=== PATIENT | female | born 1995 | race Caucasian/White ===

== ENCOUNTER 2020-01-20 14:03 | Outpatient (CLI) | payer BC, OTHER ==
--- NOTE | 2020-01-20 14:59 | US ---
EXAMINATION TYPE: US OB limited DATE OF EXAM: 01/20/2020 COMPARISON: NONE CLINICAL HISTORY: JAYDA. Fluid only EXAM PERFORMED: Transabdominal (TA) GESTATIONAL AGE / DATING Physician Established: (34 weeks/4 days) EDC: 02/27/2020 No growth performed on today?s study per ordering physician SURVEY JAYDA: 19.3 cm upper limits of normal Ultrasound evidence of premature rupture of membranes? no HEART RATE: 134 bpm RHYTHM: Normal IMPRESSION: Upper limits of normal amniotic fluid index measuring 19.3 cm. Heart rate of 134 bpm.
[2020-01-20 15:22] LABS: Basophils % (A) 0 %; Eosinophils # (A) 0.1 k/uL (0-0.7); Eosinophils % (A) 1 %; HCT 35.7 % (34.0-46.0); HGB 11.8 gm/dL (11.4-16.0); Lymphocytes % (A) 8 %; MCH 27.9 pg (25.0-35.0); MCHC 33.2 g/dL (31.0-37.0); MCV 84.1 fL (80.0-100.0); Mean Platelet Volume 8.3; Monocytes # (A) 0.6 k/uL (0-1.0); Monocytes % (A) 5 %; Neutrophils # (A) 10.6 k/uL (1.3-7.7); Neutrophils % (A) 85 %; Platelet Count 241 k/uL (150-450); RBC 4.25 m/uL (3.80-5.40); RDW 14.6 % (11.5-15.5); WBC 12.4 k/uL (3.8-10.6)
[2020-01-20 15:30] LABS: ALT 21 U/L (4-34); AST 21 U/L (14-36); African American GFR (CKD) >90 (>60 ml/min/1.73 sqM); Blood Urea Nitrogen 14 mg/dL (7-17); LDH 389 U/L (313-618); Non-African American GFR(CKD) >90 (>60 ml/min/1.73 sqM); Uric Acid 5.4 mg/dL (3.7-7.4)
[2020-01-20 16:11] LABS: Protein/Creatinine Ratio,Urine 0.107
[2020-01-20 16:12] LABS: Creatinine,Urine Random 120.2 mg/dL
[2020-01-20 16:17] LABS: Appearance,Urine Clear (Clear); Bilirubin,Urine Negative (Negative); Blood,Urine Negative (Negative); Color,Urine Yellow; Glucose,Urine (UA) Negative (Negative); Ketones,Urine Negative (Negative); Leukocyte Esterase,Urine Negative (Negative); Nitrite,Urine Negative (Negative); Protein,Urine Trace (Negative); Urobilinogen,Urine <2.0 mg/dL (<2.0)
[2020-01-20 16:42] VITALS: BP 149/87; PULSE 115; RESP 16; TEMP 98.8
--- NOTE | 2020-02-01 15:29 | P.MSEPDOC ---
Presenting Problems - Arrival Data Date of Arrival on Unit: 01/20/20 Time of Arrival on Unit: 14:03 Mode of Transport: Portable - Complaint OB-Reason for Admission/Chief Complaint: PIH Medical History - Information : 4 Para: 1 Term: 1 : 0 Abortions: Spontaneous or Elective: 0 Number of Living Children: 1 - Gestational Age Gestational Age by BERENICE (wks/days): 34 Weeks and 4 Days Review of Systems - Review of Systems Constitutional: No problems Breast: No problems ENT: No problems Cardiovascular: No problems Respiratory: No problems Gastrointestinal: No problems Genitourinary: No problems Musculoskeletal: No problems Neurological: No problems Skin: No problems Vital Signs - Temperature Temperature: 98.8 F Temperature Source: Temporal Artery Scan - Pulse Right Sitting Pulse Rate: 115 Pulse Assessment Method: Automatic Cuff - Respirations Respiratory Rate: 16 Oxygen Delivery Method: Room Air O2 Sat by Pulse Oximetry: 97 - Blood Pressure Right Arm Blood Pressure: 149/87 Blood Pressure Mean: 107 Blood Pressure Source: Automatic Cuff Physician Notification (Pre) - Physician Notified Physician Notified Date: 01/20/20 Physician Notified Time: 16:23 New Order Received: Yes (d/c home) - Notification Comment Comment: pt came with orders for pih Disposition - Disposition OB Disposition: Discharge to home Discharge Date: 01/20/20 Discharge Time: 16:30 I agree with the RN Medical Screening Exam: Yes Risk & Benefit of care provided described in d/c instruction: Yes Diagnosis: GESTATIONAL HTN W/O SIGNIFICANT PROTEINURIA, THIRD TRIMESTER
== END 2020-01-20 16:30 | disposition home or self-care (01) ==
LOC: FBPOP 14:03
PROVIDERS: ATTEND Obstetrics & Gynecology
DX: O13.3 Gestational [pregnancy-induced] hypertension without significant proteinuria, third trimester (principal); Z3A.34 34 weeks gestation of pregnancy
CPT/HCPCS: 59025; 76815; 81003; 82565; 82570; 83615; 84156; 84450; 84460; 84520; 84550; 85025

== ENCOUNTER 2020-01-27 14:29 | Observation (INO) | payer BC, OTHER ==
[2020-01-27 15:35] LABS: Basophils % (A) 0 %; Eosinophils % (A) 0 %; HCT 37.2 % (34.0-46.0); Lymphocytes # (A) 1.2 k/uL (1.0-4.8); Lymphocytes % (A) 10 %; MCH 27.5 pg (25.0-35.0); MCHC 32.3 g/dL (31.0-37.0); MCV 85.3 fL (80.0-100.0); Mean Platelet Volume 8.4; Monocytes # (A) 0.6 k/uL (0-1.0); Monocytes % (A) 5 %; Neutrophils % (A) 83 %; Platelet Count 230 k/uL (150-450); RBC 4.37 m/uL (3.80-5.40); RDW 14.6 % (11.5-15.5)
[2020-01-27 15:40] LABS: Uric Acid 5.2 mg/dL (3.7-7.4)
--- NOTE | 2020-01-27 15:49 | US ---
EXAMINATION TYPE: US OB >= 14 wk fetus DATE OF EXAM: 01/27/2020 COMPARISON: US one week ago. CLINICAL HISTORY: Complete US, Gest HTNGestational HTN TECHNIQUE: Transabdominal (TA) GESTATIONAL AGE / DATING Physician Established: (35 weeks/4 days) EDC: 02/27/2020 Dates by LMP: Unknown Dates by First Scan: This is 1st scan Dates by Current Scan: (38 weeks/2 days) EDC: 02/08/2020 SURVEY IUP: Single PLACENTA: Anterior/Posterior PREVIA: No Previa JAYDA: 21.6 cm Upper limits of normal CERVICAL LENGTH (transabdominal: norm > 3.0cm): 4.0 cm BIOMETRY PRESENTATION: Vertex BPD: 9.2 cm 37 weeks / 4 days HC: 34.1 cm 39 weeks / 3 days AC: 34.3 cm 38 weeks / 2 days FL: 7.3 cm 37 weeks / 4 days ESTIMATED WEIGHT IN GRAMS: 3392 grams ESTIMATED WEIGHT IN LBS/OZ: 7 lbs. 8 oz. WEIGHT PERCENTAGE BASED ON ESTABLISHED DATES: 97% HC/AC: 1.00 Normal FL/AC: 21% Normal HEART RATE: 135 bpm RHYTHM: Normal Viable single IUP measuring 38 weeks 2 days with a heart rate of 135bpm and an estimated delivery ayesha e of 02/08/2020 Single live intrauterine gestation redemonstrated. No cervical thinning. Normal cephalad presentatio n. No ultrasound evidence for previa. Amniotic fluid index calculated up limits of normal to mildly e levated. biometry measurements are within normal limits except for weight which is slight ly greater than expected for gestational age. IMPRESSION: As above.
[2020-01-27 16:07] LABS: Appearance,Urine Clear (Clear); Bilirubin,Urine Negative (Negative); Blood,Urine Negative (Negative); Color,Urine Yellow; Glucose,Urine (UA) Negative (Negative); Ketones,Urine Negative (Negative); Leukocyte Esterase,Urine Negative (Negative); Nitrite,Urine Negative (Negative); PH, Urine 6.5 (5.0-8.0); Protein,Urine Trace (Negative); Specific Gravity,Urine 1.015 (1.001-1.035); Urobilinogen,Urine <2.0 mg/dL (<2.0)
[2020-01-27] MEDS ORDERED: ACETAMINOPHEN TAB 325 MG TAB PO PRN (16:23)
[2020-01-27 16:26] LABS: Creatinine,Urine Random 98.1 mg/dL; Protein/Creatinine Ratio,Urine 0.143
[2020-01-27] MEDS: LABETALOL 200 MG TAB PO SCH ×2 (16:49→22:38)
[2020-01-28] MEDS: LABETALOL 200 MG TAB PO SCH (07:58)
--- NOTE | 2020-01-28 15:00 | P.HPOB ---
History of Present Illness H&P Date: 01/28/20 Chief Complaint: Gestational hypertension This is a 24-year-old female 4 para 1 with an estimated date of confinement of 02/27/2020, estimated gestational age of 35-4/7 weeks, who presented to the office on 01/27/2020 for her routine visit. At that time her blood pressure was elevated at 160/90. She denied any symptoms of headaches, blurry vision, or epigastric pain. She was sent to the hospital for evaluation with labs and ultrasound along with serial blood pressure checks. Her labs and ultrasound were all normal. Her blood pressures did fluctuate in the 140s over 70s up to 160s over 90s. She is admitted for a 24-hour urine collection and will be started on labetalol for her blood pressure since this does not appear to be preeclampsia. She has been seen by maternal- medicine and has been following with them however her last appointment was canceled due to car trouble. Her appointment is rescheduled for next Saturday. Obstetrical history: . History of 1 vaginal delivery at 38-6/7 weeks. was Located by gestational diabetes and mild preeclampsia. She also has a history of 2 miscarriages. Gynecologic history: No history of sexual transmitted diseases. Social history: She is . She is not working outside of the home. Review of Systems Constitutional: Denies chills, Denies fever Eyes: denies blurred vision, denies pain Ears, nose, mouth and throat: Denies headache, Denies sore throat Cardiovascular: Denies chest pain, Denies shortness of breath Respiratory: Denies cough Gastrointestinal: Denies abdominal pain Genitourinary: Reports , Denies pelvic pain Musculoskeletal: Denies myalgias Integumentary: Denies pruritus, Denies rash Neurological: Denies numbness, Denies weakness Psychiatric: Denies anxiety, Denies depression Past Medical History Past Medical History: No Reported History Additional Past Medical History / Comment(s): Gestational DM with 1st History of Any Multi-Drug Resistant Organisms: None Reported Past Surgical History: Tonsillectomy Past Anesthesia/Blood Transfusion Reactions: No Reported Reaction Past Psychological History: No Psychological Hx Reported Smoking Status: Never smoker Past Alcohol Use History: None Reported Past Drug Use History: None Reported - Past Family History Father Family Medical History: Diabetes Mellitus, Hypertension Mother Family Medical History: Hypertension, Thyroid Disorder Additional Family Medical History / Comment(s): depression Medications and Allergies Home Medications Medication Instructions Recorded Confirmed Type Pnv,Calcium 72/Iron/Folic Acid 1 each PO DAILY 07/07/15 01/27/20 History [ Plus Tablet] Labetalol [Trandate] 200 mg PO BID #28 tab 01/28/20 Rx Allergies Allergy/AdvReac Type Severity Reaction Status Date / Time No Known Allergies Allergy Verified 01/27/20 14:35 Exam Osteopathic Statement: *. No significant issues noted on an osteopathic structural exam other than those noted in the History and Physical/Consult. Vital Signs Temp Pulse Resp BP Pulse Ox 01/28/20 07:58 97.4 F L 85 14 141/79 98 01/28/20 04:00 97.9 F 16 155/59 98 01/28/20 00:00 97.8 F 77 16 130/60 96 01/27/20 20:00 97.8 F 85 16 131/68 97 01/27/20 18:50 100 167/75 01/27/20 18:24 168/86 01/27/20 16:51 98.9 F 104 H 16 139/86 01/27/20 16:48 104 H 139/86 Intake and Output 01/27/20 01/28/20 01/28/20 22:59 06:59 14:59 Other: # Voids 1 Weight 139.706 kg HEENT: Within normal limits Heart: Regular rate and rhythm Lungs: Clear to auscultation bilaterally Abdomen: with fundal height of 37 cm heart tones: Reactive Extremities: Negative Homans, no edema Results Result Diagrams: 01/27/20 15:02 01/27/20 15:02 Abnormal Lab Results - Last 24 Hours (Table) 01/27/20 01/27/20 Range/Units 14:38 15:02 WBC 12.0 H (3.8-10.6) k/uL Neutrophils # 10.0 H (1.3-7.7) k/uL Urine Protein Trace H (Negative) Assessment and Plan (1) Gestational hypertension Current Visit: Yes Status: Acute Code(s): O13.9 - GESTATIONAL HTN W/O SIGNIFICANT PROTEINURIA, UNSP TRIMESTER SNOMED Code(s): 947126456 Plan: The patient for observation of blood pressures, antihypertensives, and 24 hour urine collection for protein. If blood pressures are controlled on labetalol and 24 hour urine collection is normal, will be discharged on labetalol 200 mg twice a day. She will follow up with maternal- medicine on Saturday and see me in the office on Saturday. The plan will still be for delivery between 37 and 38 weeks due to gestational hypertension.
[2020-01-28 16:03] VITALS: BP 145/70; PULSE 81; RESP 16; TEMP 97.3
[2020-01-28 16:37] LABS: Total Protein 24 Hour,Urine 168 mg/24hr (42.0-225.0); Total Volume 24 Hour,Urine 1525 mls (800-1800)
--- NOTE | 2020-01-28 19:50 | P.DS ---
Providers Date of admission: 01/27/20 16:18 Expected date of discharge: 01/28/20 Attending physician: Eden Rocha Primary care physician: Stated None - Discharge Diagnosis(es) (1) Gestational hypertension Status: Acute Hospital Course: This is a 24-year-old female 4 para 1 at 35-4/7 weeks who presented for workup for gestational hypertension. Her preeclampsia workup was negative however she did have several isolated elevated blood pressures over 160 systolic and 90s diastolic. She was therefore admitted for observation of blood pressures and 24-hour urine collection. She was started on labetalol 200 mg twice a day. She denies any symptoms of headaches or blurry vision. NSTs were reactive and category 1. Her urine protein was 168 mg in 24 hours. She is therefore discharged home on labetalol 200 mg twice a day. She is instructed to follow-up with maternal medicine on Saturday and with me on Saturday. She is advised to return to the hospital if she has any decreased movement, regular contractions, headaches, blurry vision, epigastric pain, or any concerning symptoms. Patient Condition at Discharge: Stable Plan - Discharge Summary New Discharge Prescriptions: New RX: Labetalol [Trandate] 200 mg PO BID #28 tab No Action RX: Pnv,Calcium 72/Iron/Folic Acid [ Plus Tablet] 1 each PO DAILY Discharge Medication List RX: Pnv,Calcium 72/Iron/Folic Acid [ Plus Tablet] 1 each PO DAILY 07/07/15 [History] RX: Labetalol [Trandate] 200 mg PO BID #28 tab 01/28/20 [Rx] Follow up Appointment(s)/Referral(s): Eden Rocha DO [Doctor of Osteopathic Medicine] - 1 Week Patient Instructions/Handouts: Preeclampsia During (GEN) Activity/Diet/Wound Care/Special Instructions: Activity as tolerated. Diet as tolerated. Discharge Disposition: HOME SELF-CARE
== END 2020-01-28 17:06 | disposition home or self-care (01) ==
LOC: FBPOP 14:29 → UNDOADMIN 16:18 → 4FBP 16:18 → INTOOBSV 16:18
PROVIDERS: ADMIT Obstetrics & Gynecology; ATTEND Obstetrics & Gynecology
DX: O13.3 Gestational [pregnancy-induced] hypertension without significant proteinuria, third trimester (principal); Z3A.35 35 weeks gestation of pregnancy; Z83.3 Family history of diabetes mellitus; Z82.49 Family history of ischemic heart disease and other diseases of the circulatory system; Z81.8 Family history of other mental and behavioral disorders
CPT/HCPCS: 59025; 82570; 84156 ×2; 81050; 83615; 84450; 84460; 84520; 84550; 85025; 81003; 76805; G0378 ×2

== ENCOUNTER 2020-02-07 16:53 | Inpatient (IN) | payer BC, OTHER ==
--- NOTE | 2020-02-07 10:19 | P.HPOB ---
History of Present Illness H&P Date: 02/07/20 Chief Complaint: Gestational hypertension This is a 24 y.o. female, 4, para 1, with an estimated date of confinement of 02/27/2020, estimated gestational age of 37-1/7 weeks who presents for cervidil cervical ripening, followed by oxytocin induction of labor due to gestational hypertension. She was started on Labetalol 200 mg BID last week due to elevated BPs despite normal labs and urine protein. She has been followed by [facility] and has been doing twice weekly NSTs. Her last US at [facility] on 02/01/2020 showed an estimated weight of 7#3oz(76%) and BPP of 8/8. She denies any headaches, blurred vision or epigastric pain. She does have irregular contractions. labs: GC/Chlaydia/Trich-neg Random glucose-85 Hepatitis B surface antigen-neg RPR-NR Rubella-immune Blood type-A+ Antibody screen-neg Hemoglobin-12.8 1 hr. GTT-157, 3 hr. GTT-normal GBS-positive OB Hx: . Hx of 1 vaginal delivery at 38 weeks, complicated by GDM and mild pre-eclampsia. Hx 2 miscarriages. [employer] Hx: No hx STDs Social Hx: . Unemployed. Review of Systems Constitutional: Denies chills, Denies fever Eyes: denies blurred vision, denies pain Ears, nose, mouth and throat: Denies headache, Denies sore throat Cardiovascular: Denies chest pain, Denies shortness of breath Gastrointestinal: Reports abdominal pain (occ ctxs.), Denies diarrhea, Denies nausea, Denies vomiting Genitourinary: Reports pelvic pain, Reports Musculoskeletal: Reports low back pain Integumentary: Denies pruritus, Denies rash Neurological: Denies numbness, Denies weakness Psychiatric: Denies anxiety, Denies depression Past Medical History Past Medical History: Hypertension (Gestational) Additional Past Medical History / Comment(s): Gestational DM with 1st History of Any Multi-Drug Resistant Organisms: None Reported Past Surgical History: Tonsillectomy Past Anesthesia/Blood Transfusion Reactions: No Reported Reaction Past Psychological History: No Psychological Hx Reported Smoking Status: Never smoker Past Alcohol Use History: None Reported Past Drug Use History: None Reported - Past Family History Father Family Medical History: Diabetes Mellitus, Hypertension Mother Family Medical History: Hypertension, Thyroid Disorder Additional Family Medical History / Comment(s): depression Medications and Allergies Home Medications Medication Instructions Recorded Confirmed Type Pnv,Calcium 72/Iron/Folic Acid 1 each PO DAILY 07/07/15 01/27/20 History [ Plus Tablet] Labetalol [Trandate] 200 mg PO BID #28 tab 01/28/20 Rx Allergies Allergy/AdvReac Type Severity Reaction Status Date / Time No Known Allergies Allergy Verified 01/27/20 14:35 Exam Osteopathic Statement: *. No significant issues noted on an osteopathic structural exam other than those noted in the History and Physical/Consult. HEENT: within normal limits Heart: regular rate and rhythm Lungs: clear to auscultation bilaterally Abdomen: , non-tender Cervix: FT/60%/-2 heart tones: reactive Contractions: irreg. Extremities: neg. Meghan's. Assessment and Plan (1) 37 weeks gestation of Status: Acute Code(s): Z3A.37 - 37 WEEKS GESTATION OF SNOMED Code(s): 67879421 (2) Gestational hypertension Status: Acute Code(s): O13.9 - GESTATIONAL HTN W/O SIGNIFICANT PROTEINURIA, UNSP TRIMESTER SNOMED Code(s): 653195519 (3) Group B Streptococcus carrier, +RV culture, currently Status: Acute Code(s): O99.820 - STREPTOCOCCUS B CARRIER STATE COMPLICATING SNOMED Code(s): 3051190308307 Plan: Proceed with cervidil cervical ripening followed by oxytocin induction of labor. Will repeat labs on admission. Antibiotic prophylaxis for group B streptococcus.
[2020-02-07] MEDS ORDERED: ZOLPIDEM 5 MG TAB PO PRN (16:58)
[2020-02-07] MEDS ORDERED: AMPICILLIN 2,000 MG in SODIUM CHLORIDE 0.9% 100 ML IVPB STA (16:58)
[2020-02-07] MEDS ORDERED: DINOPROSTONE 10 MG INSERT.ER VAGINAL ONE (16:58)
[2020-02-07] MEDS: LACTATED RINGERS 1,000 ML IV SCH (17:16)
[2020-02-07 17:49] LABS: ALT 19 U/L (4-34); AST 23 U/L (14-36); African American GFR (CKD) >90 (>60 ml/min/1.73 sqM); Blood Urea Nitrogen 13 mg/dL (7-17); LDH 464 U/L (313-618); Non-African American GFR(CKD) >90 (>60 ml/min/1.73 sqM); Uric Acid 5.2 mg/dL (3.7-7.4)
[2020-02-07 17:50] LABS: Basophils % (A) 0 %; Eosinophils # (A) 0.1 k/uL (0-0.7); Eosinophils % (A) 1 %; HCT 34.9 % (34.0-46.0); HGB 11.6 gm/dL (11.4-16.0); Lymphocytes # (A) 1.1 k/uL (1.0-4.8); Lymphocytes % (A) 10 %; MCH 27.9 pg (25.0-35.0); MCHC 33.2 g/dL (31.0-37.0); MCV 84.1 fL (80.0-100.0); Mean Platelet Volume 8.8; Monocytes # (A) 0.5 k/uL (0-1.0); Monocytes % (A) 4 %; Neutrophils # (A) 9.3 k/uL (1.3-7.7); Neutrophils % (A) 84 %; Platelet Count 274 k/uL (150-450); RBC 4.15 m/uL (3.80-5.40); RDW 14.9 % (11.5-15.5); WBC 11.1 k/uL (3.8-10.6)
[2020-02-07] MEDS: LABETALOL 200 MG TAB PO SCH (21:17)
[2020-02-07] MEDS: AMPICILLIN 1,000 MG in SODIUM CHLORIDE 0.9% 50 ML IVPB SCH ×2 (21:17)
[2020-02-07 21:54] LABS: Appearance,Urine Clear (Clear); Bilirubin,Urine Negative (Negative); Blood,Urine Negative (Negative); Color,Urine Yellow; Glucose,Urine (UA) Negative (Negative); Ketones,Urine Negative (Negative); Leukocyte Esterase,Urine Negative (Negative); Nitrite,Urine Negative (Negative); PH, Urine 6.5 (5.0-8.0); Protein,Urine Trace (Negative); Specific Gravity,Urine 1.024 (1.001-1.035); Urobilinogen,Urine <2.0 mg/dL (<2.0)
[2020-02-07 22:05] LABS: Protein/Creatinine Ratio,Urine 0.151
[2020-02-07] MEDS: BUTORPHANOL 1 MG/ML 1 ML VIAL IV PRN (22:30)
[2020-02-08] MEDS: AMPICILLIN 1,000 MG in SODIUM CHLORIDE 0.9% 50 ML IVPB SCH ×4 (01:18→15:40)
[2020-02-08] MEDS: BUTORPHANOL 1 MG/ML 1 ML VIAL IV PRN ×2 (01:21→07:14)
[2020-02-08] MEDS: LACTATED RINGERS 1,000 ML IV SCH (05:01)
[2020-02-08] MEDS ORDERED: LACTATED RINGERS 1,000 ML IV SCH (05:13)
[2020-02-08] MEDS ORDERED: LIDOCAINE 1% (10MG/ML) FOR IV START INTRADERMA PRN (05:13)
[2020-02-08] MEDS ORDERED: LIDOCAINE 0.5% (PF) 5 MG/ML (50 ML SDV) SQ PRN (05:13)
[2020-02-08] MEDS ORDERED: TERBUTALINE 1 MG/ML VIAL SQ PRN (05:13)
[2020-02-08] MEDS ORDERED: CARBOPROST TROMETHAMINE 250 MCG/ML 1 ML AMP IM PRN (05:13)
[2020-02-08] MEDS ORDERED: OXYTOCIN 10 UNIT/ML 1 ML VIAL IM PRN (05:13)
[2020-02-08] MEDS ORDERED: METHYLERGONOVINE 0.2 MG/ML 1 ML AMP IM PRN (05:13)
[2020-02-08] MEDS ORDERED: OXYTOCIN 30 UNITS/500 ML NS 30 UNIT in SALINE 1 500ML.BAG IV SCH (05:13)
[2020-02-08] MEDS: LABETALOL 200 MG TAB PO SCH ×2 (08:48→21:20)
[2020-02-08] MEDS ORDERED: ROPIVACAINE 100 MG, fentaNYL (PF) 200 MCG in SODIUM CHLORIDE 0.9% 76 ML EPIDURAL ONE (10:48)
[2020-02-08] MEDS ORDERED: HYDROCORTISONE 2.5% RECTAL CREAM 30 GM TUBE RECTAL PRN (12:23)
[2020-02-08] MEDS ORDERED: OXYTOCIN 20 UNITS/1000 ML NS 1,000 ML IV SCH (12:23)
[2020-02-08] MEDS ORDERED: ZOLPIDEM 5 MG TAB PO PRN (12:23)
[2020-02-08] MEDS ORDERED: diphenhydrAMINE 25 MG CAP PO PRN (12:23)
[2020-02-08] MEDS ORDERED: LANOLIN CREAM 5 GM TUBE TOPICAL PRN (12:23)
[2020-02-08] MEDS ORDERED: SIMETHICONE 80 MG CHEWABLE PO PRN (12:23)
[2020-02-08] MEDS ORDERED: WITCH HAZEL 1 EACH MED..PAD TOPICAL PRN (12:23)
[2020-02-08] MEDS ORDERED: diphenhydrAMINE 50 MG CAP PO PRN (12:23)
[2020-02-08] MEDS ORDERED: diphenhydrAMINE 50 MG/ML 1 ML VIAL IVP PRN ×2 (12:23)
[2020-02-08] MEDS ORDERED: ACETAMINOPHEN TAB 325 MG TAB PO PRN (12:23)
[2020-02-08] MEDS ORDERED: IBUPROFEN 600 MG TAB PO PRN (12:23)
[2020-02-08] MEDS ORDERED: BENZOCAINE/MENTHOL SPRAY 1 GM/SPRAY AEROSOL TOPICAL PRN (12:23)
--- NOTE | 2020-02-08 14:21 | P.PROBDLV ---
Vaginal Delivery Note - . Vaginal Delivery Note: The patient progressed to complete dilation after Cervidil cervical ripening followed by oxytocin induction of labor. She underwent artificial rupture membranes with clear fluid noted and was dilated to 1-1/2 at that time. She did receive epidural anesthesia after several doses of Stadol. Once reaching complete dilation, she began pushing. Infant's head came to a crown. She began having decelerations down to 60s to 70s after some of her contractions. At this point the perineum was anesthetized with 1% lidocaine and a midline episiotomy was cut. With one further push, the infant's head delivered across the perineum followed by the infant's body fairly rapidly. Nuchal cord times one was reduced around the body with delivery. was placed on mother's abdomen and nose and mouth were bulb suctioned. Cord was clamped and cut and infant was taken to warmer for evaluation. A viable male infant is noted with scores of 9 at 1 minute and 9 at 5 minutes and infant weight of 8 lbs. 4 oz. Placenta delivered shortly thereafter, intact, with a three-vessel cord. Uterus contracted initially fairly well after oxytocin was given and uterine massage was carried out. Her bladder was also drained with a catheter. Inspection of the perineum revealed a midline episiotomy that did extend upwards towards the cervix on both sides of the vagina. This area was anesthetized with 1% lidocaine. The apex of the cut was sutured with 3-0 Vicryl suture in a running locked fashion on either side of the vagina. The remainder was sutured with 3-0 and 2-0 Vicryl suture in the usual multilayer fashion. After the repair she was noted to still be oozing. A gloved hand was placed within the intrauterine cavity and blood clot was removed. Uterus did firm up after this. Estimated blood loss is approximately 300 mL's. Mother and infant are in stable c ondition.
[2020-02-08] MEDS: SENNOSIDES-DOCUSATE SODIUM 1 EACH TAB PO SCH (21:19)
[2020-02-09 07:18] LABS: Basophils % (A) 0 %; Eosinophils # (A) 0.1 k/uL (0-0.7); Eosinophils % (A) 1 %; HCT 31.2 % (34.0-46.0); HGB 10.2 gm/dL (11.4-16.0); Lymphocytes # (A) 2.1 k/uL (1.0-4.8); Lymphocytes % (A) 15 %; MCH 27.8 pg (25.0-35.0); MCHC 32.7 g/dL (31.0-37.0); MCV 85.3 fL (80.0-100.0); Mean Platelet Volume 8.8; Monocytes # (A) 0.8 k/uL (0-1.0); Monocytes % (A) 5 %; Neutrophils # (A) 10.5 k/uL (1.3-7.7); Neutrophils % (A) 75 %; Platelet Count 252 k/uL (150-450); RBC 3.65 m/uL (3.80-5.40); RDW 14.9 % (11.5-15.5)
[2020-02-09] MEDS: SENNOSIDES-DOCUSATE SODIUM 1 EACH TAB PO SCH (08:23)
[2020-02-09] MEDS: LABETALOL 200 MG TAB PO SCH (08:24)
--- NOTE | 2020-02-09 08:59 | P.DS ---
Providers Date of admission: 02/07/20 16:53 Expected date of discharge: 02/09/20 Attending physician: Eden Rocha Primary care physician: Stated None - Discharge Diagnosis(es) (1) 37 weeks gestation of Current Visit: No Status: Acute (2) Gestational hypertension Current Visit: No Status: Acute (3) Group B Streptococcus carrier, +RV culture, currently Current Visit: No Status: Acute Hospital Course: This is a 24-year-old female 4 para 1 at 37 and one sevenths weeks who presented for induction of labor secondary to gestational hypertension. Her blood pressures have been well controlled on labetalol 200 mg twice a day. Her labs were negative for preeclampsia. She underwent Cervidil cervical ripening followed by oxytocin induction of labor and delivered vaginally a viable male on 02/08/2020 with scores of 9 at 1 minute and 9 at 5 minutes and weight of 8 lbs. 4 oz. Her course has been uncomplicated. Lochia is decreasing. She is working on pumping her breast milk. Her baby is in level I nursery on oxygen. She would like to go home today however due to care for her other child. Vital signs are stable with normal blood pressures. Abdomen is soft with fundus firm and nontender. Extremities show negative Homans. Impression is status post vaginal delivery day #1. Plan is to discharge home today. She is advised to continue taking her labetalol 200 mg twice a day at home. She will be given a prescription for ibuprofen and a breast pump. She is advised to follow up in the office in approximately 1-2 weeks for a blood pressure check. Routine instructions are given. She is advised to call the office if she has any further questions or concerns prior to her appointment time. Procedures: Cervidil cervical ripening Oxytocin induction of labor Spontaneous vaginal delivery of a viable male on 02/08/2020 Patient Condition at Discharge: Stable Plan - Discharge Summary New Discharge Prescriptions: New Ibuprofen [Motrin] 600 mg PO Q6HR PRN #60 tab PRN Reason: Mild Pain Or Fever >= 100.5 Continue Pnv,Calcium 72/Iron/Folic Acid [ Plus Tablet] 1 each PO DAILY Labetalol [Trandate] 200 mg PO BID #28 tab Discharge Medication List Pnv,Calcium 72/Iron/Folic Acid [ Plus Tablet] 1 each PO DAILY 07/07/15 [History] Ibuprofen [Motrin] 600 mg PO Q6HR PRN #60 tab 02/09/20 [Rx] Labetalol [Trandate] 200 mg PO BID #28 tab 02/09/20 [Rx] Follow up Appointment(s)/Referral(s): Eden Rocha DO [Doctor of Osteopathic Medicine] - 2 Weeks Activity/Diet/Wound Care/Special Instructions: Instructions 1. Do not begin any exercise program for 3 weeks. 2. Do not resume sexual relations for 3 weeks or longer if uncomfortable. 3. You may take tub baths or showers at any time. 4. You may use tampons if desired after 3 weeks. 5. Keep the area of episiotomy (stitches) clean and dry. 6. If you are not nursing, wear a good fitting, supportive bra during the day and limit fluid intake for at least 1 week to prevent breast engorgement. 7. Call the office, [phone], within the next week to make appointment for your 6 week checkup if it has not already been made. 8. Report any of the following occurrences to the doctor promptly: a. Heavy, excessive bleeding b. Chills, fever c. Burning or frequency of urination d. Pain or redness and breasts if nursing e. Increasing pain or swelling in episiotomy (stitches). In addition to the above instructions, the following additional should be followed: 1. No heavy lifting or straining (exercising) until after 6 week checkup. 2. Keep abdominal incision clean and dry: You may wear a dressing if more comfortable. 3. Make office appointment for 10 days after going home or as instructed by her doctor. Discharge Disposition: HOME SELF-CARE
[2020-02-09 10:39] VITALS: RESP 18
[2020-02-09 16:05] VITALS: BP 143/65; PULSE 73; TEMP 97.6
== END 2020-02-09 18:53 | disposition home or self-care (01) | DRG 807 ==
LOC: 4FBP 16:53
PROVIDERS: ADMIT Obstetrics & Gynecology; ATTEND Obstetrics & Gynecology
PROC: 00HU33Z Insertion of Infusion Device into Spinal Canal, Percutaneous Approach (ICD-10-PCS; principal; 2020-02-08)
PROC: 3E0R3BZ Introduction of Anesthetic Agent into Spinal Canal, Percutaneous Approach (ICD-10-PCS; principal; 2020-02-08)
PROC: 10E0XZZ Delivery of Products of Conception, External Approach (ICD-10-PCS; principal; 2020-02-08)
DX: O13.4 Gestational [pregnancy-induced] hypertension without significant proteinuria, complicating childbirth (principal); Z37.0 Single live birth; O69.81X0 Labor and delivery complicated by cord around neck, without compression, not applicable or unspecified; O76 Abnormality in fetal heart rate and rhythm complicating labor and delivery; O99.820 Streptococcus B carrier state complicating pregnancy; Z3A.37 37 weeks gestation of pregnancy; Z81.8 Family history of other mental and behavioral disorders; Z82.49 Family history of ischemic heart disease and other diseases of the circulatory system; Z83.3 Family history of diabetes mellitus; Z86.32 Personal history of gestational diabetes
CPT/HCPCS: 81003; 82565; 82570; 83615; 84156; 84450; 84460; 84520; 84550; 85025; 86850; 86900; 86901; 88307

== ENCOUNTER 2021-08-09 11:43 | Emergency (ER) | payer BC, OTHER ==
[2021-08-09 12:02] VITALS: RESP 18; TEMP 98.2
--- NOTE | 2021-08-09 13:01 | US ---
EXAMINATION TYPE: US venous doppler duplex LE RT DATE OF EXAM: 08/09/2021 12:39 PM COMPARISON: NONE CLINICAL HISTORY: pain. bruising right lower leg SIDE PERFORMED: right TECHNIQUE: The lower extremity deep venous system is examined utilizing real time linear array sonog jacob with graded compression, doppler sonography and color-flow sonography. VESSELS IMAGED: Common Femoral Vein Deep Femoral Vein Greater Saphenous Vein * Femoral Vein Popliteal Vein Small Saphenous Vein * Proximal Calf Veins (* superficial vessels) Right Leg: no evidence of DVT. scanned within area of bruising (right lateral mid calf), no evidence of fluid collection or significant abnormality by ultrasound at this time IMPRESSION: No evidence for DVT.
[2021-08-09 13:22] VITALS: BP 153/93; PULSE 88
--- NOTE | 2021-08-09 14:01 | ED ---
General Adult HPI - General Chief complaint: Extremity Injury, Lower Stated complaint: bruising on leg-sent by [employer] Time Seen by Provider: 08/09/21 13:08 Source: patient, RN notes reviewed Mode of arrival: ambulatory Limitations: no limitations - History of Present Illness Initial comments: Patient is a pleasant 26-year-old female presenting to the emergency Department with complaints of bruising to her right lower leg. Patient noticed this 2 days ago. Patient states that has somewhat increased in size since that time. Patient denies any discomfort. Patient denies any injury. No calf discomfort or Swelling. No history of similar symptoms previously. No areas of bleeding or black tarry stools. No other areas of bruising. - Related Data Home Medications Medication Instructions Recorded Confirmed No Known Home Medications 08/09/21 08/09/21 Allergies Allergy/AdvReac Type Severity Reaction Status Date / Time No Known Allergies Allergy Verified 08/09/21 13:46 Review of Systems ROS Statement: Those systems with pertinent positive or pertinent negative responses have been documented in the HPI. ROS Other: All systems not noted in ROS Statement are negative. Constitutional: Denies: fever Eyes: Denies: eye pain ENT: Denies: ear pain Respiratory: Denies: cough, dyspnea Cardiovascular: Denies: chest pain Endocrine: Denies: fatigue Gastrointestinal: Denies: abdominal pain Genitourinary: Denies: dysuria Musculoskeletal: Denies: back pain Skin: Reports: as per HPI Neurological: Denies: weakness Past Medical History Past Medical History: Hypertension Additional Past Medical History / Comment(s): Gestational DM with 1st History of Any Multi-Drug Resistant Organisms: None Reported Past Surgical History: Tonsillectomy Past Anesthesia/Blood Transfusion Reactions: No Reported Reaction Past Psychological History: Anxiety, Depression Smoking Status: Never smoker Past Alcohol Use History: Rare Past Drug Use History: Marijuana - Past Family History Father Family Medical History: Diabetes Mellitus, Hypertension Mother Family Medical History: Hypertension, Thyroid Disorder Additional Family Medical History / Comment(s): depression General Exam Limitations: no limitations General appearance: alert, in no apparent distress Head exam: Present: normocephalic Eye exam: Present: normal appearance Respiratory exam: Present: normal lung sounds bilaterally Cardiovascular Exam: Present: regular rate, normal rhythm Expanded Peripheral pulses: 2+: Posterior Tibialis (R), Dorsalis Pedis (R) Extremities exam: Present: other (Right lateral lower leg with approximately 8 x 10 cm area of ecchymosis. No tenderness. Distally the patient is neurovascular intact.). Absent: pedal edema, calf tenderness Neurological exam: Present: alert Psychiatric exam: Present: normal affect, normal mood Skin exam: Present: other (Ecchymosis) Course Vital Signs 08/09/21 08/09/21 12:00 13:21 Temperature 98.2 F Pulse Rate 94 88 Respiratory 18 18 Rate Blood Pressure 166/111 153/93 O2 Sat by Pulse 98 99 Oximetry Disposition Clinical Impression: Superficial bruising of lower leg Disposition: HOME SELF-CARE Condition: Stable Instructions (If sedation given, give patient instructions): Ecchymosis (ED) Additional Instructions: Please do follow-up to primary care physician in the next couple of days for recheck. Bobby wrap or ice to affected area as needed. Return for other areas of bleeding, increased bruising, pain, fever, worsening symptoms or any other co ncerns. Is patient prescribed a controlled substance at d/c from ED?: No Referrals: Behzad Barbosa MD [Primary Care Provider] - 1-2 days Time of Disposition: 14:01
== END 2021-08-09 14:05 | disposition home or self-care (01) ==
LOC: EC 11:43
DX: S80.11XA Contusion of right lower leg, initial encounter (principal); I10 Essential (primary) hypertension; X58.XXXA Exposure to other specified factors, initial encounter
CPT/HCPCS: 99283